=== PATIENT | male | born 1995 | race Caucasian/White ===

== ENCOUNTER 2019-09-02 12:07 | Emergency (ER) | payer BC, SELFPAY ==
[2019-09-02 12:13] VITALS: BP 132/67; PULSE 87; RESP 22; TEMP 36.6; O2SAT 100
[2019-09-02] MEDS: Normal Saline 500 ML 1000 ML IV (12:30)
--- NOTE | 2019-09-02 12:30 | DI.RAD_ITS ---
EXAM: XR HAND LT COMPLETE CLINICAL HISTORY: Laceration, trauma, rule out fracture/foreign body TECHNIQUE: COMPARISON: No exams were available for comparison FINDINGS: Three views were obtained. There is apparent soft tissue defect of the thenar eminence. There is sm all cortical defect of the mid shaft of the 1st metacarpal presumably representing an impaction fract ure. No other fracture seen. IMPRESSION:
[2019-09-02] MEDS: Ondansetron 4 MG/2 ML VIAL IVP (12:31)
[2019-09-02 12:41] VITALS: RESP 18; O2SAT 100
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
[2019-09-02 13:07] VITALS: BP 127/65; PULSE 54; RESP 15; O2SAT 99
[2019-09-02] MEDS: AMPICILLIN/SULBACTAM 3 GM in Normal Saline 100 ML IVPB (14:30)
[2019-09-02 14:31] VITALS: BP 135/70; PULSE 57; RESP 16; O2SAT 98
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
[2019-09-02 15:45] VITALS: BP 135/77; PULSE 71; RESP 16; O2SAT 97
[2019-09-02 17:13] VITALS: BP 130/73; PULSE 60; RESP 16; O2SAT 99
== END 2019-09-02 17:14 | disposition home or self-care (01) ==
PROVIDERS: Emergency Provider Registered Nurse Emergency; PCP Family Medicine
DX: S61.012A Laceration without foreign body of left thumb without damage to nail, initial encounter (principal); S66.022A Laceration of long flexor muscle, fascia and tendon of left thumb at wrist and hand level, initial encounter; W26.0XXA Contact with knife, initial encounter
CPT/HCPCS: 29125; 90471; 96361; 96365; 96375; 96376; 99252; 99284; 73130; J0295; J2405; L3650